=== PATIENT | female | born 1960 | race African-American/Black ===

== ENCOUNTER 2017-02-09 11:30 | Emergency (ER) | payer MEDICAID ==
[~2017-02-09] VITALS: Ht 167.6 cm; Wt 75.7 kg
[~2017-02-09 11:30] MED LIST: IBUPROFEN600 MG ORAL; NORCO 5-325 TA1 EACH ORAL; VALACYCLOVIR500 MG ORAL
[2017-02-09 11:37] VITALS: BP 154/84
[2017-02-09 12:14] LABS: MEAN CORPUSCULAR HEMOGLOBIN 26.9 PG (27.0-31.0); MEAN CORPUSCULAR HGB CONC 31.9 G/DL (32.0-36.0); MEAN CORPUSCULAR VOLUME 84 FL (80-99); MEAN PLATELET VOLUME 6.5 FL (6.5-10.1); PLATELET COUNT 308 K/UL (150-450); RED BLOOD COUNT 5.05 M/UL (4.20-5.40); WHITE BLOOD COUNT 5.5 K/UL (4.8-10.8)
[2017-02-09 12:21] VITALS: BP 170/83
[2017-02-09 12:23] LABS: ALANINE AMINOTRANSFERASE 30 U/L (3-33); ALBUMIN/GLOBULIN RATIO 1.4 (1.0-2.7); ANION GAP 13 (5-15); ASPARTATE AMINO TRANSFERASE 25 U/L (5-40); CALCIUM 9.9 mg/dL (8.6-10.2); CARBON DIOXIDE 29 mEQ/L (20-30); CHLORIDE 96 mEQ/L (98-107); CREATININE 0.9 mg/dL (0.5-0.9); GLOMERULAR FILTRATION RATE > 60 mL/min (>60); HEMOLYSIS 2; POTASSIUM 4.4 mEQ/L (3.4-4.9); SODIUM 138 mEQ/L (135-145); TOTAL PROTEIN 7.2 g/dL (6.6-8.7)
[2017-02-09 12:24] LABS: TROPONIN I < 0.30 ng/mL (<=0.30)
[2017-02-09 12:33] LABS: CKMB 1.8 ng/mL (< 3.8)
[2017-02-09 12:42] LABS: ANISOCYTOSIS 1+; BAND NEUTROPHILS % (MANUAL) 0 % (0-8); BASOPHILS % (MANUAL) 0 % (0-2); EOSINOPHILS % (MANUAL) 1 % (0-3); LYMPHOCYTES % (MANUAL) 40 % (20-45); NEUTROPHILS % (MANUAL) 48 % (45-75); PLATELET ESTIMATE ADEQUATE; PLATELET MORPHOLOGY NORMAL; TOTAL CELLS COUNTED 100
[2017-02-09] MEDS ORDERED: MICROZIDE12.5 M1 PO (12:53)
[2017-02-09] MEDS ORDERED: Nitroglycerin 2% oint pkt TOPIC ONE (13:00)
--- NOTE | 2017-02-09 13:18 | Emergency Room Report ---
History of Present Illness General Chief Complaint: Chest Pain Source: Patient, Family Member, EMS Present Illness HPI 56 YOF +smoker, HTN history, presents with substernal "pressure like" chest pain across top of chest occurred suddenly while at work. Improved with EMS given nitro spray and ASA. Recent had "cough for long time" but no cough precipitated chest pain. Denies fever/chills, abd pain. Deneis drug use. Denies compliance with HTN med. Allergies: Coded Allergies: No Known Allergies (Unverified , 06/06/15) Patient History Past Medical History: HTN Past Surgical History: none Pertinent Family History: none Social History: Reports: smoking Now: No Immunizations: UTD Reviewed Nursing Documentation: PMH: Agreed, PSxH: Agreed Nursing Documentation-PMH Hx Cardiac Problems: Yes Hx Hypertension: Yes Hx Pacemaker: No Hx Asthma: No Hx COPD: No Hx Diabetes: No Hx Cancer: No Hx Gastrointestinal Problems: No Hx Dialysis: No Hx Neurological Problems: No Hx Cerebrovascular Accident: No Hx Seizures: No Review of Systems All Other Systems: negative except mentioned in HPI Physical Exam Vital Signs Date Time Temp Pulse Resp B/P Pulse Ox O2 Delivery O2 Flow Rate FiO2 02/09/17 11:28 98.2 81 18 154/84 99 Room Air Sp02 EP Interpretation: reviewed, normal General Appearance: normal inspection, well appearing, no apparent distress, alert, non-toxic Head: normocephalic, atraumatic Eyes: bilateral eye EOMI, bilateral eye PERRL ENT: normal ENT inspection, hearing grossly normal, normal voice Neck: normal inspection, full range of motion, supple, no bony tend Respiratory: normal inspection, lungs clear, normal breath sounds, no respiratory distress, no retraction, no wheezing Cardiovascular #1: regular rate, rhythm, no edema Gastrointestinal: normal inspection, normal bowel sounds, non tender, soft, no guarding, no hernia Genitourinary: no CVA tenderness Musculoskeletal: normal inspection, back normal, normal range of motion, Sundar' s Sign negative Neurologic: normal inspection, alert, oriented x3, responsive, 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 Risk factors for CAD include age, female gender, smoking, HTN. ECG is NSR. No ischemia Additional nitro paste given in ED Labs: No leuks. H&H stable. Troponin 0. CXR neg for PNA, PTX, cardiomegaly Accepted for transfer by Dr Thomas to [facility] for tele admission at 158pm EKG Diagnostic Results Rate: normal Rhythm: NSR ST Segments: no acute changes ASA given to the pt in ED: Yes Rhythm Strip Diag. Results EP Interpretation: yes Rate: 72 Rhythm: NSR, no PVC's, no ectopy Chest X-Ray Diagnostic Results EP Interpretation: Yes Findings: no consolidation, no effusion, no pneumothorax Number of Views: 1 Last Vital Signs Date Time Temp Pulse Resp B/P Pulse Ox O2 Delivery O2 Flow Rate FiO2 02/09/17 13:06 170/83 02/09/17 12:21 71 18 98 Room Air 02/09/17 11:37 98.2 Status: improved Disposition: ADMITTED INPATIENT Condition: Serious Referrals: [facility],REFERRING (PCP) GENTRY SANTANA M.D. Feb 09, 2017 13:18
[2017-02-09 14:00] VITALS: BP 176/84
[2017-02-09 15:40] VITALS: BP 143/79
--- NOTE | 2017-02-09 16:21 | Diagnostic Imaging Report ---
Indication: Chest Technique: One view of the chest Comparison: 05/28/15 Findings: Lungs and pleural spaces are clear. Heart size is normal. Aorta is tortuous and ectatic. Findings are unchanged Impression: No acute process
--- NOTE | 2017-02-11 23:16 | Cardiology Report ---
APPROVED REPORT EKG Measurement Heart [id number] WI [id number] Normal sinus rhythm Nonspecific T wave abnormality Abnormal ECG
== END 2017-02-09 15:40 | disposition short-term general hospital (02) ==
LOC: EDBD 11:30 → EMR 12:05 → EDBEDREQ 12:31 → EMR 15:40
DX: R07.9 Chest pain, unspecified (principal); I10 Essential (primary) hypertension; F17.200 Nicotine dependence, unspecified, uncomplicated
CPT/HCPCS: 36415; 71010; 80053; 82550; 82553; 84484; 85007; 85025; 93005

== ENCOUNTER 2017-06-23 15:00 | Outpatient (CLI) | payer SELFPAY ==
[~2017-06-23 15:00] MED LIST changes: +MICROZIDE12.5 M1 PO
--- NOTE | 2017-06-23 15:55 | Diagnostic Imaging Report ---
Indication: COUGH Technique: Two views of the chest Comparison: 02/09/2017 Findings: The lungs and pleural spaces are clear. Heart size is normal. The aorta is ectatic and tortuous. There is no significant interim change Impression: No acute process
--- NOTE | 2017-06-24 15:44 | Cardiology Report ---
APPROVED REPORT EKG Measurement Heart [id number] NC [id number] Sinus bradycardia Possible Left atrial enlargement Borderline ECG
== END 2017-06-23 17:00 | disposition home or self-care (01) ==
LOC: RAD 15:00
DX: Z01.818 Encounter for other preprocedural examination (principal); R07.9 Chest pain, unspecified; R05 Cough; R00.1 Bradycardia, unspecified
CPT/HCPCS: 71020; 93005

== ENCOUNTER 2017-07-30 08:41 | Emergency (ER) | payer SELFPAY ==
[~2017-07-30] VITALS: Ht 172.7 cm; Wt 75.7 kg
[2017-07-30] MEDS ORDERED: BENADRYL25 MG ORAL (08:57)
[2017-07-30] MEDS ORDERED: BACTRIM DS TAB1 EAC1 ORAL (08:57)
[2017-07-30] MEDS ORDERED: PREDNISONE20 MG ORAL (08:57)
[2017-07-30 09:05] VITALS: BP 143/91
--- NOTE | 2017-07-30 10:18 | Emergency Room Report ---
History of Present Illness General Chief Complaint: Skin Rash/Abscess Source: Patient Present Illness HPI Patient 56-year-old female who presented after increased swelling to her face and neck. Patient was noted to have increased itchiness to the areas. She denied any fever. She denied pain patient stated that this had gradual onset over the past day but had worsened last night. Allergies: Coded Allergies: No Known Allergies (Unverified , 06/06/15) Patient History Past Medical History: see triage record Last Menstrual Period: 2012 Now: No Reviewed Nursing Documentation: PMH: Agreed, PSxH: Agreed Nursing Documentation-PMH Past Medical History: No History, Except For Hx Cardiac Problems: Yes Hx Hypertension: Yes Hx Pacemaker: No Hx Asthma: No Hx COPD: No Hx Diabetes: No Hx Cancer: No Hx Gastrointestinal Problems: No Hx Dialysis: No Hx Neurological Problems: No Hx Cerebrovascular Accident: No Hx Seizures: No Review of Systems All Other Systems: negative except mentioned in HPI Physical Exam Vital Signs Date Time Temp Pulse Resp B/P (MAP) Pulse Ox O2 Delivery O2 Flow Rate FiO2 07/30/17 08:45 97.9 78 19 161/95 100 Room Air General Appearance: well appearing, no apparent distress, alert, GCS 15 Head: normocephalic, atraumatic ENT: hearing grossly normal, normal voice Neck: full range of motion, supple Respiratory: no respiratory distress, speaking full sentences Musculoskeletal: no calf tenderness Neurologic: normal inspection, alert, oriented x3, responsive, normal gait Psychiatric: mood/affect normal Skin: no rash Medical Decision Making Diagnostic Impression: Primary Impression: Insect bite ER Course Patient presented for skin rash. Differential diagnosis included was not limited to allergic reaction, scabies, shingles, abscess among others. Patient' s benign exam and does not appear to require any further imaging or laboratory testing at this time. The patient appears to have some allergy. There appeared to be some papular lesions which appear to be insect bites. Patient was given prescription for prednisone as well as antihistamines. The patient is advised to follow up with primary care doctor in 1-2 days. Patient is advised to return if any worsening condition or if any changes in status that are concerning. Last Vital Signs Date Time Temp Pulse Resp B/P (MAP) Pulse Ox O2 Delivery O2 Flow Rate FiO2 07/30/17 09:05 97.9 76 18 143/91 99 Room Air Status: improved Disposition: HOME, SELF-CARE Condition: Stable Scripts Trimethoprim/Sulfamethoxazole 160/800* (BACTRIM DS TABLET*) 1 Each Tablet 1 TAB ORAL Q12H, #14 TAB 0 Refills Prov: Srinivasa Valdez 07/30/17 Prednisone* (PREDNISONE*) 20 Mg Tablet 40 MG ORAL DAILY, #10 TAB Prov: Srinivasa Valdez 07/30/17 Diphenhydramine Hcl* (BENADRYL*) 25 Mg Capsule 25 MG ORAL Q6H Y for Itching, #30 CAP Prov: Srinivasa Valdez 07/30/17 Patient Instructions: Pruritus Srinivasa Valdez Jul 30, 2017 10:18
== END 2017-07-30 09:05 | disposition home or self-care (01) ==
LOC: EMR 08:51
DX: R21 Rash and other nonspecific skin eruption (principal); W57.XXXA Bitten or stung by nonvenomous insect and other nonvenomous arthropods, initial encounter; Y93.9 Activity, unspecified; Y99.9 Unspecified external cause status; L29.9 Pruritus, unspecified; Z86.79 Personal history of other diseases of the circulatory system; I10 Essential (primary) hypertension
CPT/HCPCS: 99284

== ENCOUNTER 2020-06-09 00:01 | Emergency (ER) | payer MEDICAID, OTHER ==
[~2020-06-09] VITALS: Ht 170.2 cm; Wt 81.6 kg
[~2020-06-09 00:01] MED LIST changes: +BACTRIM DS TAB1 EAC1 ORAL; +BENADRYL25 MG ORAL; +PREDNISONE20 MG ORAL
--- NOTE | 2020-06-09 00:15 | NUR ---
ED Nurse Note: Recieved pt from home, here with c/o headache x 1 day with intermittent neck pain, pt has hx of HTN, states took meds, ate fried fish and headache became worse, denies chest pain, sob, or any other complaints or discomforts, pt has hx of CVA and dysphasia, present with her for assist with speaking, pt gowned and placed on cardiac monitoring, will resume care as ordered and continue to closely monitor.
--- NOTE | 2020-06-09 00:38 | Emergency Room Report ---
History of Present Illness General Chief Complaint: Hypertension Source: Family Member Present Illness HPI This is a 59-year-old female with a history of high blood pressure and CVA. She is a phasic from a CVA in 2018. She presents with chief plaint of headache. Onset tonight. To the left side of her head where she had a previous CVA. Throbbing in nature. No fever chills but no nausea no vomiting. Has not take anything for this. Allergies: Coded Allergies: No Known Allergies (Unverified , 06/06/15) COVID-19 Screening Contact w/high risk pt: No Experienced COVID-19 symptoms?: No COVID-19 Testing performed FRONT OFFICE MEDICAL ASSISTANT: No Patient History Past Medical History: see triage record, old chart reviewed, HTN, CVA/TIA Past Surgical History: other Pertinent Family History: none Social History: Denies: smoking Now: No Immunizations: other Reviewed Nursing Documentation: PMH: Agreed; PSxH: Agreed Nursing Documentation-PMH Hx Cardiac Problems: Yes Hx Hypertension: Yes Hx Pacemaker: No Hx Asthma: No Hx COPD: No Hx Diabetes: No Hx Cancer: No Hx Gastrointestinal Problems: No Hx Dialysis: No Hx Neurological Problems: No Hx Cerebrovascular Accident: No Hx Seizures: No Review of Systems Eye: Denies: eye pain, blurred vision ENT: Denies: ear pain, nose congestion, throat swelling Respiratory: Denies: cough, shortness of breath Cardiovascular: Denies: chest pain, palpitations Gastrointestinal: Denies: abdominal pain, diarrhea, nausea, vomiting Musculoskeletal: Denies: back pain, joint pain Skin: Denies: rash Neurological: Reports: headache; Denies: numbness Endocrine: Denies: increased thirst, increased urine Hematologic/Lymphatic: Denies: easy bruising All Other Systems: negative except mentioned in HPI Physical Exam Vital Signs Date Time Temp Pulse Resp B/P (MAP) Pulse Ox O2 Delivery O2 Flow Rate FiO2 06/09/20 00:03 98.6 74 18 162/97 (118) 97 Room Air Vitals with high blood pressure Sp02 EP Interpretation: reviewed, normal General Appearance: well appearing, no apparent distress, alert Head: normocephalic, atraumatic Eyes: bilateral eye PERRL, bilateral eye EOMI ENT: hearing grossly normal, normal pharynx Neck: full range of motion, supple, no meningismus Respiratory: chest non-tender, lungs clear, normal breath sounds Cardiovascular #1: regular rate, rhythm, no murmur Gastrointestinal: normal bowel sounds, non tender, no mass, no organomegaly, no bruit, non-distended Musculoskeletal: back normal, normal range of motion, gait/station normal Psychiatric: mood/affect normal Medical Decision Making Diagnostic Impression: Primary Impression: Hypertension Qualified Codes: I10 - Essential (primary) hypertension Additional Impression: Headache Qualified Codes: R51 - Headache ER Course This patient presents with headache. There is no evidence of any new CVA, meningitis or bleed. Blood pressure improved. Headache improved. Will discharge home. CT/MRI/US Diagnostic Results CT/MRI/US Diagnostic Results : Imaging Test Ordered: CT head Impression Large left MCA territory chronic infarct. No acute bleed. Read by radiologist. Last Vital Signs Date Time Temp Pulse Resp B/P (MAP) Pulse Ox O2 Delivery O2 Flow Rate FiO2 06/09/20 00:03 98.6 74 18 162/97 (118) 97 Room Air Status: improved Disposition: HOME, SELF-CARE Condition: Stable Scripts Hydrocodone/Acetaminophen 5-325* (HYDROCODONE/ACETAMINOPHEN 5-325*) 1 Each Tablet 1 TAB ORAL Q6H PRN for For Pain, #15 TAB 0 Refills Prov: Nathen Díaz MD 06/09/20 Referrals: NOT [facility]OS[facility]/,REFERRING (PCP) Additional Instructions: Take your blood pressure medication. Follow-up with your doctor in 7 days. Return if worse. Nathen Díaz MD Jun 09, 2020 00:37
[2020-06-09] MEDS ORDERED: LOSARTAN POTASS25 MG ORAL (00:55)
[2020-06-09] MEDS ORDERED: VITAMIN D3 COM1 EACH PO (00:55)
[2020-06-09] MEDS ORDERED: ASPIRIN EC81 MG ORAL (00:55)
[2020-06-09] MEDS ORDERED: ATORVASTATIN CA80 MG ORAL (00:55)
[2020-06-09 01:15] VITALS: BP 155/87
--- NOTE | 2020-06-09 01:20 | NUR ---
ED Nurse Note: Pt continues to rest quietly in bed, awake and alert, pain level has decreased to 4/10, no cp or sob or any acute changes, pt ambulated to bathroom, tolerated well, steady gait, no visual disturbances, pt remains on cardiac monitoring, will continue to monitor and prepare for disposition.
--- NOTE | 2020-06-09 01:27 | Diagnostic Imaging Report ---
EXAM: CT Head Without Intravenous Contrast CLINICAL HISTORY: PAIN TECHNIQUE: Axial computed tomography images of the head/brain without intravenous contrast. CTDI is 53.4 mGy and DLP is 1072.2 mGy-cm. One or more of the following dose reduction techniques were used: automated exposure control, adjustment of the mA and/or kV according to patient size, use of iterative reconstruction technique. COMPARISON: No relevant prior studies available. FINDINGS: Brain: Large left MCA territory chronic infarct. No hemorrhage. No significant white matter disease. Ventricles: Unremarkable. No ventriculomegaly. Bones/joints: Unremarkable. No acute fracture. Soft tissues: Unremarkable. Sinuses: Unremarkable as visualized. No acute sinusitis. Mastoid air cells: Unremarkable as visualized. No mastoid effusion. IMPRESSION: Large left MCA territory chronic infarct. Otherwise no acute intracranial pathology.
[2020-06-09] MEDS ORDERED: HYDROCODON-ACE1 EA15 ORAL (01:34)
[2020-06-09 01:35] VITALS: BP 145/80
[2020-06-09 01:45] VITALS: BP 145/80
--- NOTE | 2020-06-09 01:45 | NUR ---
ER DISCHARGE NOTE: Patient is cleared to be discharged per ERMD, pt is aox4, on room air, with stable vital signs. pt was given dc and prescription instructions, pt was able to verbalize understanding, pt id band removed without complications. pt is able to ambulate with steady gait. pt took all belongings. pt with .
== END 2020-06-09 01:45 | disposition home or self-care (01) ==
LOC: EMR 00:17
DX: I10 Essential (primary) hypertension (principal); R51 Headache; Z86.73 Personal history of transient ischemic attack (TIA), and cerebral infarction without residual deficits
CPT/HCPCS: 70450; Z7502; 99284